=== PATIENT | male | born 1965 | race Caucasian/White ===

== ENCOUNTER 2017-05-04 16:08 | Emergency (ER) | payer OTHER ==
[~2017-05-04] VITALS: Ht 180.3 cm; Wt 90.7 kg
[~2017-05-04 16:08] MED LIST: AUGMENTIN 875 M1 TAB PO; ENDOCET 325 MG-1 TA1 PO; NAPROXEN500 MG PO
[2017-05-04 16:12] VITALS: BP 154/84
--- NOTE | 2017-05-04 16:46 | ED ANIMAL BITE/WOUND CHECK ---
History of Present Illness General Chief Complaint: Animal/Insect Bite Stated Complaint: PT HAS A BUG BITE ON THE RT ARM Source: patient Exam Limitations: no limitations Vital Signs & Intake/Output Vital Signs & Intake/Output Vital Signs Date Time Temp Pulse Resp B/P B/P Pulse O2 O2 Flow FiO2 Mean Ox Delivery Rate 05/04 1612 98.5 94 18 154/84 98 Room Air Room Air ED Intake and Output 05/05 0000 05/04 1200 Intake Total Output Total Balance Patient 200 lb Weight Weight Reported by Patient Measurement Method Allergies Coded Allergies: NO KNOWN ALLERGIES (09/09/13) Reconcile Medications Cephalexin (Keflex) 500 MG CAPSULE 1 CAP PO TID cellulitis Naproxen 500 MG TAB 1 TAB PO BID PRN PAIN OXYCODONE HCL/ACETAMINOPHEN (Endocet 5-325 Tablet) 1 TAB TAB 1 TAB PO Q6H PRN PAIN Triage Note: TRIAGE: 52 Y/O MALE PRESENTS C/O BUG BITE TO RIGHT UPPER ARM X1 WEEK. Triage Nurses Notes Reviewed? yes Onset: Abrupt Duration: day(s): (7), constant, continues in ED, getting worse Timing: single episode today Is Injury an Animal Bite? No Severity: mild, moderate Severity Numbers: 3 No Modifying Factors: none HPI: 52-year-old male with no significant past medical history presents for evaluation of a possible inset bite on the right upper arm. he first noticed the lesion on the right upper arm approximately one week ago. Since then it has become increased in size and slightly more painful. Pain is currently located just in the lesion itself and is mild. He reports that the pain is a 3 out of 10 and does not radiate. He does report some bloody and purulent discharge from the area. No fevers, no history of diabetes, trauma to the area, spreading redness or any other associated symptoms. Patient reports he had a similar lesion on his leg last year that are noted to be a spider bite. Past History Travel History Traveled to [place] past 21 day No Medical History Any Pertinent Medical History? see below for history Neurological: NONE EENT: NONE Cardiovascular: NONE Respiratory: NONE Gastrointestinal: NONE Hepatic: NONE Renal: NONE Musculoskeletal: NONE Psychiatric: NONE Endocrine: NONE Blood Disorders: NONE Cancer(s): NONE Surgical History Surgical History: unobtainable Psychosocial History What is your primary language Faroese Tobacco Use: Never used ETOH Use: occasional use Illicit Drug Use: marijuana Family History Hx Contributory? No Review of Systems Review of Systems Constitutional: Reports: no symptoms. EENTM: Reports: no symptoms. Respiratory: Reports: no symptoms. Cardiovascular: Reports: no symptoms. GI: Reports: no symptoms. Genitourinary: Reports: no symptoms. Musculoskeletal: Reports: no symptoms. Skin: Reports: see HPI, lesions. Neurological/Psychological: Reports: no symptoms. Hematologic/Endocrine: Reports: no symptoms. Immunologic/Allergic: Reports: no symptoms. All Other Systems: Reviewed and Negative Physical Exam Physical Exam General Appearance: well developed/nourished, no apparent distress, alert, awake Head: atraumatic, normal appearance Eyes: Bilateral: normal appearance, PERRL, EOMI. Ears, Nose, Throat: normal pharynx, normal ENT inspection, hearing grossly normal Neck: normal inspection, supple, full range of motion Respiratory: normal breath sounds, chest non-tender, no respiratory distress, lungs clear Cardiovascular: regular rate/rhythm, normal peripheral pulses Peripheral Pulses: 2+ radial (R), 2+ radial (L) Gastrointestinal: normal bowel sounds, soft, non-tender, no organomegaly Back: normal inspection, normal range of motion Extremities: normal range of motion Neurologic/Psych: no motor/sensory deficits, awake, alert, oriented x 3, normal gait Skin: normal color, warm/dry Lymphatic: no anterior cervical ravi Comments: There is a 0.5 cm diameter circular pustule located on the right upper arm. It is tender to palpation with overlying erythema and surrounding induration. Blood and pus expressed when palpated. Motion of the right upper extremity. Neurovascular supply intact. Progress Differential Diagnosis: abscess, cellulitis Plan of Care: Patient seen and evaluated. At this time the lesion will be treated as an infection. The area was opened with a 11 blade scalpel and bloody discharge was removed. No packing was needed. Patient will be discharged home on keflex and will follow up with a primary care doctor for wound check in 2 or 3 days. Patient is nontoxic appearing at discharge and is in agreement with the plan. Departure Departure Disposition: HOME OR SELF CARE Condition: Stable Clinical Impression Primary Impression: Insect bite of arm, right, infected Qualifiers: Encounter type: initial encounter Qualified Codes: S40.861A - Insect bite (nonvenomous) of right upper arm, initial encounter; L08.9 - Local infection of the skin and subcutaneous tissue, unspecified; W57.XXXA - Bitten or stung by nonvenomous insect and other nonvenomous arthropods, initial encounter Referrals: PATIENT HAS NO PRIMARY CARE DR (PCP/Family) Additional Instructions: Keep the area clean and dry. Change dressing at least once a day. He is Tylenol or ibuprofen as needed for pain. Take Ativan excess directed for the full course and take a probiotic to replace bacteria. Make a follow-up appointment with a primary care doctor for a wound check in 2 or 3 days. Monitor the area for signs of worsening infection such as spreading redness swelling and purulent discharge or pain. Return to emergency department with any concerns. Departure Forms: Customer Survey General Discharge Information Prescriptions: Current Visit Scripts Cephalexin (Keflex) 1 CAP PO TID #21 CAP Procedures Incision and Drainage Site: RUE Blade Size: 11 I & D Procedure: Yes: betadine prep, sterile drapes applied, sterile dressing applied. No: wick placed. Progress: Consent obtained. The area was cleaned with Betadine. An 11 blade was used to open the pustule. Bloody discharge and a small amount of pus removed. No packing placed. Sterile dressing placed. Patient tolerated well.
[2017-05-04] MEDS ORDERED: KEFLEX500 M1 PO (17:07)
== END 2017-05-04 17:27 ==
LOC: ERH 16:08
DX: S40.861A Insect bite (nonvenomous) of right upper arm, initial encounter (principal); L08.9 Local infection of the skin and subcutaneous tissue, unspecified; W57.XXXA Bitten or stung by nonvenomous insect and other nonvenomous arthropods, initial encounter; Y93.9 Activity, unspecified; Y92.9 Unspecified place or not applicable